=== PATIENT | female | born 1955 | race Caucasian/White ===

== ENCOUNTER 2018-08-09 20:51 | Inpatient (IN) | payer OTHER, MEDICAID ==
[~2018-08-09] VITALS: Ht 152.4 cm; Wt 59.4 kg
[2018-08-09] MEDS ORDERED: DEXTROSE 50% SYRINGE 50 ML IV ONE (21:35)
[2018-08-09] MEDS ORDERED: DEXTROSE (50%) 50ML SYRG IV ONE ×2 (21:45→23:15)
[2018-08-09] MEDS ORDERED: D5W/SOD CHL 0.45% 1,000 ML IV ONE (21:45)
[2018-08-09 21:53] LABS: Basophils # (auto) 0 uL; Basophils % (auto) 0.1 % (0.0-2.0); Eosinophils # (auto) 0 uL; Eosinophils % (auto) 0.1 % (0.0-7.0); Hematocrit 36.5 % (36.0-46.0); Hemoglobin 12.3 g/dL (12.2-16.2); Lymphocytes # (auto) 0.5 uL; Lymphocytes % (auto) 5.9 % (10.0-50.0); Mean Corpuscular Hemoglobin 27.8 pg (28.0-32.0); Mean Corpuscular Hgb Conc. 33.8 g/dL (32.0-36.0); Mean Corpuscular Volume 82.4 fL (80.0-100.0); Monocytes # (auto) 0.6 uL; Monocytes % (auto) 7.2 % (0.0-12.0); Neutrophils # (auto) 7.1 uL; Neutrophils % (auto) 86.7 % (37.0-80.0); Platelet Count (auto) 202 10^3/uL (140-450); Red Blood Cells 4.43 10^6/uL (4.0-5.20); Red Cell Distribution Width 15.6 % (11.8-14.3); White Blood Cell 8.2 10^3/uL (4.4-10.8)
[2018-08-09 22:10] LABS: Albumin 3.3 g/dL (3.4-5.0); Calcium 8.4 mg/dL (8.5-10.1); Potassium 3.2 mmol/L (3.5-5.1)
[2018-08-09 22:12] LABS: BUN/Creatinine Ratio 18.7; Bilirubin, Total 0.7 mg/dL (0.2-1.0); Total Protein 6.7 g/dL (6.4-8.2)
[2018-08-09] MEDS ORDERED: ONDANSETRON HCL 4 MG/2 ML VIAL IV PRN (22:45)
[2018-08-09] MEDS ORDERED: TEMAZEPAM 15 MG CAP PO PRN (22:45)
[2018-08-09] MEDS ORDERED: ACETAMINOPHEN 325 MG TAB PO PRN (22:45)
[2018-08-09] MEDS ORDERED: DEXTROSE 10% 1,000 ML IV SCH ×2 (22:45→23:30)
[2018-08-09] MEDS ORDERED: NITROGLYCERIN 0.4 MG SL TAB SL PRN (22:45)
[2018-08-09] MEDS ORDERED: MORPHINE SULFATE 4 MG/ML SYR/VIAL IV PRN (22:45)
[2018-08-09] MEDS ORDERED: DEXTROSE (50%) 50ML SYRG IV PRN (22:45)
[2018-08-09] MEDS ORDERED: DEXTROSE 10% 1,000 ML IV ONE (23:28)
[2018-08-09 23:52] VITALS: BP 128/69
[2018-08-10] VITALS (7 sets, daily range): BP systolic 90–128; BP diastolic 51–69
[2018-08-10] MEDS ORDERED: ACCU-CHEK COMFORT CURVE STRIP VI SCH
[2018-08-10] MEDS: ACCU-CHEK COMFORT CURVE STRIP VI SCH ×12 (00:28→21:08)
--- NOTE | 2018-08-10 00:30 | NUR ---
Telemetry admit from [facility] KNUTSON admitted to Telemetry unit after SBAR received. Patient oriented to Araceli Roth RN primary RN, unit, room, bed, and unit policies regarding patient care and visiting hours. Patient now on continuous telemetry monitoring, tele box # 24 and telemetry reading on arrival to unit is SR. Patient weighed by bedscale and encouraged to call if they need something. All questions and concerns addressed, patient verbalized understanding, will continue to monitor Note: []
[2018-08-10] MEDS ORDERED: POTA20TA53 PO (01:33)
[2018-08-10] MEDS ORDERED: SIMV10TA84 PO (01:33)
[2018-08-10] MEDS ORDERED: MET50T PO (01:33)
[2018-08-10] MEDS ORDERED: METF-370 PO (01:33)
[2018-08-10] MEDS ORDERED: AMLO5TAB13 PO (01:33)
[2018-08-10] MEDS ORDERED: GLIP-115 PO (01:33)
[2018-08-10] MEDS: InsuLIN REG 1unit/0.01ml Soln (100units/ml) SC SCH ×6 (04:00→21:08)
--- NOTE | 2018-08-10 05:20 | NUR ---
Spoke to hospitalist Terrell, updated on patient's status, received and read back new orders, will carry out order
[2018-08-10] MEDS ORDERED: DEXTROSE (50%) 50ML SYRG IV PRN (06:00)
[2018-08-10] MEDS: DEXTROSE 10% 1,000 ML IV SCH ×2 (06:15→18:27)
[2018-08-10 07:04] LABS: Potassium 3.6 mmol/L (3.5-5.1)
[2018-08-10 07:17] LABS: Albumin 2.9 g/dL (3.4-5.0); BUN/Creatinine Ratio 26.7; Bilirubin, Total 0.4 mg/dL (0.2-1.0); Total Protein 5.9 g/dL (6.4-8.2)
--- NOTE | 2018-08-10 07:30 | NUR ---
OPENING NOTE ASSUMED CARE OF PT. PT SITTING ON BED, HOB SEMI-FOWLERS. PT A&O X4. ON ROOM AIR, O2 SATURATION 96%. NO SIGNS OF SOB/DISTRESS NOTED. PT ON TELE #24, HR 110. SAFETY PRECAUTIONS IN PLACE INCLUDING, BED SET TO LOWEST POSITION/LOCKED. BEDSIDE RAILS UP X2. CALL LIGHT WITHIN REACH. INSTRUCTED PT TO CALL FOR ASSISTANCE. DISCUSSED POC WITH PT. PT VERBALIZED UNDERSTANDING. WILL CONTINUE TO MONITOR Q 1HR AND PRN.
[2018-08-10] MEDS: METOPROLOL TARTRATE 50 MG TAB PO SCH ×2 (10:10→21:00)
[2018-08-10] MEDS: PANTOPRAZOLE 40 MG TAB PO SCH (10:11)
[2018-08-10] MEDS: amLODIPine BESYLATE 5 MG TAB PO SCH (10:11)
--- NOTE | 2018-08-10 10:17 | NUR ---
BLOOD GLUCOSE 116
--- NOTE | 2018-08-10 12:16 | NUR ---
BLOOD GLUCOSE 123
[2018-08-10 13:29] LABS: Urine Bacteria NONE SEEN /hpf (None Seen); Urine Blood Negative /uL (Negative); Urine Specific Gravity 1.006 (1.001-1.035); Urine WBC 1 /hpf (0 - 5)
--- NOTE | 2018-08-10 19:25 | NUR ---
ENDORSED CARE TO REA Jacobo RN.
--- NOTE | 2018-08-10 20:30 | NUR ---
Opening Shift Note: A&Ox4, resting in bed. Room air, pain level 0/10, and at baseline ambulates independently without assistive devices; currently independent to BSC. Bed locked in lowest position, side rails up x2, and call light within reach. Skin intact: generalized bruising present. IV left hand 18 g running 10% dextrose at 80 ml/hr inserted on 08/09/18 and IV 20 g in right forearm running NS at 125 ml/hr inserted on 08/10/18. POC discussed and questions answered. Will continue to round prn.
[2018-08-10] MEDS: SODIUM CHLORIDE 0.9% 1,000 ML IV SCH (21:07)
[2018-08-10] MEDS ORDERED: ATORVASTATIN 20 MG TAB PO SCH (22:00)
--- NOTE | 2018-08-10 22:00 | NUR ---
Held 2200 metoprolol 50 mg for low blood pressure of 103/58.
[2018-08-11] MEDS: ACCU-CHEK COMFORT CURVE STRIP VI SCH ×4 (00:47→12:04)
[2018-08-11] MEDS: InsuLIN REG 1unit/0.01ml Soln (100units/ml) SC SCH ×4 (04:30→12:05)
--- NOTE | 2018-08-11 04:30 | NUR ---
IV removal: 18 g in left hand infiltration. IV removed and heat pack applied. NS and dextrose restarted in IV 20 g in right forearm.
[2018-08-11 05:00] VITALS: BP 90/53
[2018-08-11] MEDS: SODIUM CHLORIDE 0.9% 1,000 ML IV SCH ×2 (05:22→11:45)
[2018-08-11 06:32] LABS: Basophils # (auto) 0 uL; Basophils % (auto) 0.3 % (0.0-2.0); Eosinophils # (auto) 0 uL; Hematocrit 30.3 % (36.0-46.0); Hemoglobin 9.7 g/dL (12.2-16.2); Lymphocytes # (auto) 0.6 uL; Lymphocytes % (auto) 22.6 % (10.0-50.0); Mean Corpuscular Hemoglobin 27.5 pg (28.0-32.0); Mean Corpuscular Hgb Conc. 31.9 g/dL (32.0-36.0); Monocytes # (auto) 0.3 uL; Neutrophils # (auto) 1.8 uL; Neutrophils % (auto) 67.1 % (37.0-80.0); Nucleated Red Blood Cells % 0.1 %; Platelet Count (auto) 129 10^3/uL (140-450); Red Blood Cells 3.52 10^6/uL (4.0-5.20); Red Cell Distribution Width 16.2 % (11.8-14.3); White Blood Cell 2.7 10^3/uL (4.4-10.8)
--- NOTE | 2018-08-11 07:15 | NUR ---
OPENING NOTE ASSUMED CARE OF PT. PT SITTING ON BED, HOB SEMI-FOWLERS. PT A&O X4. ON ROOM AIR, O2 SATURATION 95%. NO SIGNS OF SOB/DISTRESS NOTED. PT ON TELE #24, HR 84. SAFETY PRECAUTIONS IN PLACE INCLUDING, BED SET TO LOWEST POSITION/LOCKED. BEDSIDE RAILS UP X2. CALL LIGHT WITHIN REACH. INSTRUCTED PT TO CALL FOR ASSISTANCE. DISCUSSED POC WITH PT. PT VERBALIZED UNDERSTANDING. WILL CONTINUE TO MONITOR Q 1HR AND PRN.
[2018-08-11] MEDS: DEXTROSE 10% 1,000 ML IV SCH (08:14)
[2018-08-11 08:57] VITALS: BP 99/63
[2018-08-11] MEDS: amLODIPine BESYLATE 5 MG TAB PO SCH (10:00)
[2018-08-11] MEDS: METOPROLOL TARTRATE 50 MG TAB PO SCH (10:00)
[2018-08-11] MEDS: PANTOPRAZOLE 40 MG TAB PO SCH (10:04)
[2018-08-11 10:23] LABS: Albumin 2.6 g/dL (3.4-5.0); Potassium 3.8 mmol/L (3.5-5.1)
[2018-08-11 10:27] LABS: BUN/Creatinine Ratio 18.1; Bilirubin, Total 0.2 mg/dL (0.2-1.0); Total Protein 5.7 g/dL (6.4-8.2)
--- NOTE | 2018-08-11 12:50 | NUR ---
Discharge instructions given as ordered. Encourage to follow up with Dr. Abdalla. [id number] [place] [address]. . All questions and concerns addressed. Patient verbalized understanding. No home medications held in Pharmacy and no vaccines given. IV removed with catheter intact, pressure dressing applied. Telemetry unit #24 returned to ICU.
--- NOTE | 2018-08-11 12:57 | NUR ---
Patient taken to vehicle via wheelchair with all personal belongings, accompanied by staff and family member. No distress noted at time of departure.
[2018-08-11 13:02] VITALS: BP 104/64
== END 2018-08-11 14:11 | disposition home or self-care (01) | DRG 637 ==
LOC: EDBD 20:51 → ER 20:54 → TELE 23:20 → TELE-WESTW 23:30
PROVIDERS: ADMIT Nurse Practitioner; ATTEND Family Medicine
DX: E11.649 Type 2 diabetes mellitus with hypoglycemia without coma (principal); G93.41 Metabolic encephalopathy; E66.9 Obesity, unspecified; Z68.25 Body mass index [BMI] 25.0-25.9, adult; E78.00 Pure hypercholesterolemia, unspecified; E86.0 Dehydration; I10 Essential (primary) hypertension; N18.3 Chronic kidney disease, stage 3 (moderate); I12.9 Hypertensive chronic kidney disease with stage 1 through stage 4 chronic kidney disease, or unspecified chronic kidney disease; Z79.84 Long term (current) use of oral hypoglycemic drugs
CPT/HCPCS: 36415; 71045; 80053; 81001; 82962; 85025; 87040; 87086; 93005; 94761; 96365; 96375; G0378; J1815

== ENCOUNTER 2023-08-12 09:58 | Inpatient (IN) | payer OTHER, MEDICAID ==
[~2023-08-12] VITALS: Ht 152.4 cm; Wt 39.5 kg
[~2023-08-12 09:58] MED LIST: AMLO1TAB22 PO; GLIP5TAB12 PO; MET50T PO; METF-370 PO; POTA-220 PO; SIMV10TA20 PO
[2023-08-12] MEDS ORDERED: ACETAMINOPHEN 325 MG TAB PO ONE (10:30)
[2023-08-12] MEDS ORDERED: SODIUM CHLORIDE 0.9% 500 ML IV ONE (10:30)
[2023-08-12 11:23] LABS: Basophils # (auto) 0 10 ^3/uL (0-0.2); Basophils % (auto) 0.2 % (0.0-2.0); Eosinophils # (auto) 0 10 ^3/uL (0-0.8); Hematocrit 41.4 % (36.0-46.0); Hemoglobin 13.5 g/dL (12.2-16.2); Lymphocytes # (auto) 0.8 10 ^3/uL (0.4-5.4); Lymphocytes % (auto) 4.5 % (10.0-50.0); Mean Corpuscular Hgb Conc. 32.6 g/dL (32.0-36.0); Mean Corpuscular Volume 85.7 fL (80.0-100.0); Monocytes % (auto) 5.6 % (0.0-12.0); Neutrophils % (auto) 89.7 % (37.0-80.0); Red Blood Cells 4.83 10^6/uL (4.0-5.20); Red Cell Distribution Width 16.1 % (11.8-14.3); White Blood Cell 17.8 10^3/uL (4.4-10.8)
[2023-08-12 11:44] LABS: Alanine Aminotransferase 17 U/L (7-40); Albumin 3.9 g/dL (3.2-4.8); Alkaline Phosphatase 87 U/L (46-116); Anion Gap 13 (5-15); Aspartate Aminotransferase 14 U/L (13-40); Bilirubin, Total 0.9 mg/dL (0.2-1.0); Blood Urea Nitrogen 53 mg/dL (9-23); Calcium 9.7 mg/dL (8.7-10.4); Carbon Dioxide 23 mmol/L (20-30); Chloride 100 mmol/L (98-107); Glucose 212 mg/dL (74-106); Potassium 3.5 mmol/L (3.5-5.1); Sodium 136 mmol/L (136-145); Total Protein 6.6 g/dL (5.7-8.2)
[2023-08-12 12:06] LABS: INR 0.93 (0.9-1.15); Partial Thromboplastin Time 29.3 SEC (24.5-34.5)
[2023-08-12] MEDS ORDERED: cefTRIAXone 1GM/50ML D5W 50 ML IV ONE (13:45)
[2023-08-12] MEDS ORDERED: AZITHROMYCIN 500MG/ 250ML 250 ML IV ONE (13:45)
[2023-08-12] MEDS ORDERED: DEXTROSE (50%) 50ML SYRG IV PRN (14:00)
[2023-08-12] MEDS ORDERED: ACETAMINOPHEN 325 MG TAB PO PRN (14:00)
[2023-08-12] MEDS ORDERED: MORPHINE SULFATE INJ 2 MG/ml SYRG IV PRN ×2 (14:00)
[2023-08-12] MEDS ORDERED: NITROGLYCERIN 0.4 MG SL TAB SL PRN (14:00)
[2023-08-12] MEDS ORDERED: HYDROcodone-ACET 5/325MG TAB PO PRN (14:00)
[2023-08-12 14:34] LABS: Free T4 (Free Thyroxine) 1.49 ng/dL (0.89-1.76)
[2023-08-12] MEDS ORDERED: ERGOCALCIFEROL 50,000 UNIT(1.25MG) CAP PO SCH (15:00)
[2023-08-12 18:20] LABS: Urine Bacteria FEW /hpf (None Seen); Urine Blood Negative /uL (Negative); Urine Clarity Clear (Clear); Urine Color Yellow (Yellow); Urine Protein, UAD TRACE (Negative); Urine Specific Gravity 1.015 (1.001-1.035); Urine Urobilinogen Normal (Negative); Urine WBC 2 /hpf (0 - 5)
[2023-08-12] MEDS: ACCU-CHEK COMFORT CURVE STRIP VI SCH ×2 (18:24→22:00)
[2023-08-12] MEDS: InsuLIN REG 1unit/0.01ml Soln (100units/ml) SC SCH ×2 (18:24→22:00)
[2023-08-12] MEDS: ATORVASTATIN 20 MG TAB PO SCH (22:50)
[2023-08-12] MEDS: METOPROLOL TARTRATE 50 MG TAB PO SCH (22:50)
[2023-08-12 23:54] VITALS: BP_SYST 132; BP_SYST 134; BP_DIAS 68; BP_DIAS 73; PULSE 77; PULSE 97; RESP 17; RESP 18; TEMP 36.6; O2SAT 97
[2023-08-13] VITALS (8 sets, daily range): BP systolic 107–117; BP diastolic 56–69; PULSE 73–85; RESP 17–20; TEMP 97–98.3; O2SAT 90–97
[2023-08-13] MEDS: InsuLIN REG 1unit/0.01ml Soln (100units/ml) SC SCH ×4 (06:49→21:58)
[2023-08-13] MEDS: ACCU-CHEK COMFORT CURVE STRIP VI SCH ×4 (06:50→22:13)
[2023-08-13 06:51] LABS: Basophils # (auto) 0 10 ^3/uL (0-0.2); Basophils % (auto) 0.2 % (0.0-2.0); Eosinophils # (auto) 0 10 ^3/uL (0-0.8); Hematocrit 39.5 % (36.0-46.0); Hemoglobin 12.9 g/dL (12.2-16.2); Lymphocytes # (auto) 0.8 10 ^3/uL (0.4-5.4); Lymphocytes % (auto) 6.1 % (10.0-50.0); Mean Corpuscular Hemoglobin 28.3 pg (28.0-32.0); Mean Corpuscular Hgb Conc. 32.7 g/dL (32.0-36.0); Mean Corpuscular Volume 86.5 fL (80.0-100.0); Monocytes # (auto) 0.9 10 ^3/uL (0-1.3); Monocytes % (auto) 6.9 % (0.0-12.0); Neutrophils # (auto) 11.1 10 ^3/uL (1.6-8.6); Neutrophils % (auto) 86.8 % (37.0-80.0); Red Blood Cells 4.57 10^6/uL (4.0-5.20); Red Cell Distribution Width 16.1 % (11.8-14.3); White Blood Cell 12.8 10^3/uL (4.4-10.8)
[2023-08-13 07:10] LABS: Alanine Aminotransferase 20 U/L (7-40); Albumin 3.7 g/dL (3.2-4.8); Alkaline Phosphatase 104 U/L (46-116); Anion Gap 13 (5-15); Aspartate Aminotransferase 26 U/L (13-40); BUN/Creatinine Ratio 29.6 (10.0-20.0); Blood Urea Nitrogen 21 mg/dL (9-23); Calcium 9.6 mg/dL (8.5-10.1); Carbon Dioxide 22 mmol/L (20-30); Chloride 102 mmol/L (98-107); Glucose 133 mg/dL (74-106); Potassium 2.6 mmol/L (3.5-5.1); Sodium 137 mmol/L (136-145)
[2023-08-13 07:11] LABS: Bilirubin, Total 1.1 mg/dL (0.2-1.0); Total Protein 6.3 g/dL (5.7-8.2)
[2023-08-13] MEDS ORDERED: POTASSIUM CHL 20MEQ/100ML 100 ML IV SCH (08:15)
[2023-08-13] MEDS ORDERED: POTASSIUM EFFERVESENT TAB 25 MEQ PO ONE ×3 (08:30→15:15)
[2023-08-13] MEDS: cefTRIAXone 1GM/50ML D5W 50 ML IV SCH (09:10)
[2023-08-13] MEDS: METOPROLOL TARTRATE 50 MG TAB PO SCH ×2 (09:11→22:09)
[2023-08-13] MEDS: amLODIPine BESYLATE 5 MG TAB PO SCH (09:12)
[2023-08-13] MEDS ORDERED: TIMO0.5S66 EACHEYE (09:45)
[2023-08-13] MEDS ORDERED: ENOXAPARIN SOD 40 MG/0.4 ML SYRINGE SC SCH (10:00)
[2023-08-13] MEDS: ATORVASTATIN 20 MG TAB PO SCH (22:09)
[2023-08-14] VITALS (7 sets, daily range): BP systolic 94–119; BP diastolic 56–74; PULSE 67–96; RESP 14–20; TEMP 97.2–98; O2SAT 96–99
[2023-08-14] MEDS: InsuLIN REG 1unit/0.01ml Soln (100units/ml) SC SCH ×4 (06:08→21:39)
[2023-08-14] MEDS: ACCU-CHEK COMFORT CURVE STRIP VI SCH ×4 (06:08→21:38)
[2023-08-14 06:28] LABS: Anion Gap 9 (5-15); Carbon Dioxide 26 mmol/L (20-30); Chloride 101 mmol/L (98-107); Potassium 3.5 mmol/L (3.5-5.1); Sodium 136 mmol/L (136-145)
[2023-08-14 06:30] LABS: Calcium 9.2 mg/dL (8.7-10.4)
[2023-08-14 06:34] LABS: BUN/Creatinine Ratio 29.6 (10.0-20.0); Blood Urea Nitrogen 21 mg/dL (9-23); Glucose 111 mg/dL (74-106)
[2023-08-14 07:08] LABS: Basophils # (auto) 0 10 ^3/uL (0-0.2); Basophils % (auto) 0.2 % (0.0-2.0); Eosinophils # (auto) 0 10 ^3/uL (0-0.8); Hematocrit 38.5 % (36.0-46.0); Hemoglobin 12.6 g/dL (12.2-16.2); Lymphocytes # (auto) 0.8 10 ^3/uL (0.4-5.4); Mean Corpuscular Hemoglobin 28.1 pg (28.0-32.0); Mean Corpuscular Hgb Conc. 32.7 g/dL (32.0-36.0); Mean Corpuscular Volume 86.1 fL (80.0-100.0); Monocytes # (auto) 0.8 10 ^3/uL (0-1.3); Monocytes % (auto) 7.6 % (0.0-12.0); Neutrophils # (auto) 8.7 10 ^3/uL (1.6-8.6); Neutrophils % (auto) 84.2 % (37.0-80.0); Red Blood Cells 4.48 10^6/uL (4.0-5.20); Red Cell Distribution Width 15.8 % (11.8-14.3); White Blood Cell 10.4 10^3/uL (4.4-10.8)
[2023-08-14] MEDS: ENOXAPARIN SOD 30 MG/0.3 ML SYRINGE SC SCH (09:37)
[2023-08-14] MEDS: cefTRIAXone 1GM/50ML D5W 50 ML IV SCH (09:37)
[2023-08-14] MEDS: TIMOLOL MAL 0.5% OPTH(EYE) SOL 5ML EACHEYE SCH (09:37)
[2023-08-14] MEDS: amLODIPine BESYLATE 5 MG TAB PO SCH (09:39)
[2023-08-14] MEDS: METOPROLOL TARTRATE 50 MG TAB PO SCH ×2 (09:40→21:39)
[2023-08-14] MEDS ORDERED: SPIRONOLACTONE 25 MG TAB PO SCH (10:00)
[2023-08-14] MEDS: ATORVASTATIN 20 MG TAB PO SCH (21:39)
[2023-08-15] VITALS (7 sets, daily range): BP systolic 97–115; BP diastolic 61–73; PULSE 63–81; RESP 14–18; TEMP 97.8–98.6; O2SAT 95–100
[2023-08-15] MEDS: ACCU-CHEK COMFORT CURVE STRIP VI SCH ×4 (05:58→22:21)
[2023-08-15] MEDS: InsuLIN REG 1unit/0.01ml Soln (100units/ml) SC SCH ×4 (05:59→22:00)
[2023-08-15 06:43] LABS: Basophils # (auto) 0 10 ^3/uL (0-0.2); Basophils % (auto) 0.2 % (0.0-2.0); Eosinophils # (auto) 0 10 ^3/uL (0-0.8); Eosinophils % (auto) 0.2 % (0.0-7.0); Hematocrit 39.5 % (36.0-46.0); Hemoglobin 12.9 g/dL (12.2-16.2); Lymphocytes # (auto) 1.3 10 ^3/uL (0.4-5.4); Lymphocytes % (auto) 12.6 % (10.0-50.0); Mean Corpuscular Hemoglobin 28.3 pg (28.0-32.0); Mean Corpuscular Hgb Conc. 32.6 g/dL (32.0-36.0); Mean Corpuscular Volume 86.6 fL (80.0-100.0); Monocytes # (auto) 0.9 10 ^3/uL (0-1.3); Monocytes % (auto) 8.2 % (0.0-12.0); Neutrophils # (auto) 8.3 10 ^3/uL (1.6-8.6); Neutrophils % (auto) 78.8 % (37.0-80.0); Nucleated Red Blood Cells % 0.3 %; Red Blood Cells 4.57 10^6/uL (4.0-5.20); Red Cell Distribution Width 15.6 % (11.8-14.3); White Blood Cell 10.6 10^3/uL (4.4-10.8)
[2023-08-15 06:58] LABS: Alanine Aminotransferase 41 U/L (7-40); Albumin 3.5 g/dL (3.2-4.8); Alkaline Phosphatase 172 U/L (46-116); Anion Gap 10 (5-15); Aspartate Aminotransferase 22 U/L (13-40); BUN/Creatinine Ratio 32.8 (10.0-20.0); Blood Urea Nitrogen 22 mg/dL (9-23); Calcium 9.4 mg/dL (8.5-10.1); Carbon Dioxide 27 mmol/L (20-30); Chloride 100 mmol/L (98-107); Glucose 79 mg/dL (74-106); Potassium 3.4 mmol/L (3.5-5.1); Sodium 137 mmol/L (136-145)
[2023-08-15 06:59] LABS: Bilirubin, Total 0.6 mg/dL (0.2-1.0); Total Protein 6.2 g/dL (5.7-8.2)
[2023-08-15] MEDS ORDERED: POTASSIUM EFFERVESENT TAB 25 MEQ GT ONE (09:00)
[2023-08-15] MEDS: cefTRIAXone 1GM/50ML D5W 50 ML IV SCH (09:03)
[2023-08-15] MEDS: METOPROLOL TARTRATE 50 MG TAB PO SCH ×2 (09:04→22:27)
[2023-08-15] MEDS: amLODIPine BESYLATE 5 MG TAB PO SCH (09:04)
[2023-08-15] MEDS: ENOXAPARIN SOD 30 MG/0.3 ML SYRINGE SC SCH (09:04)
[2023-08-15] MEDS: TIMOLOL MAL 0.5% OPTH(EYE) SOL 5ML EACHEYE SCH (10:23)
[2023-08-15] MEDS ORDERED: CEPH500C PO (12:32)
[2023-08-15] MEDS ORDERED: ERGO1CAP23 PO (12:32)
[2023-08-15] MEDS: ATORVASTATIN 20 MG TAB PO SCH (22:25)
[2023-08-16 04:54] VITALS: BP 110/72; PULSE 76; RESP 18; TEMP 98.2; O2SAT 99
[2023-08-16] MEDS: ACCU-CHEK COMFORT CURVE STRIP VI SCH ×3 (06:05→22:00)
[2023-08-16] MEDS: InsuLIN REG 1unit/0.01ml Soln (100units/ml) SC SCH ×3 (06:05→21:27)
[2023-08-16 06:26] LABS: Basophils # (auto) 0 10 ^3/uL (0-0.2); Basophils % (auto) 0.3 % (0.0-2.0); Eosinophils # (auto) 0 10 ^3/uL (0-0.8); Eosinophils % (auto) 0.2 % (0.0-7.0); Hematocrit 39.7 % (36.0-46.0); Lymphocytes # (auto) 1.2 10 ^3/uL (0.4-5.4); Lymphocytes % (auto) 11.9 % (10.0-50.0); Mean Corpuscular Hemoglobin 28.3 pg (28.0-32.0); Mean Corpuscular Hgb Conc. 32.8 g/dL (32.0-36.0); Mean Corpuscular Volume 86.2 fL (80.0-100.0); Monocytes # (auto) 0.8 10 ^3/uL (0-1.3); Monocytes % (auto) 8.3 % (0.0-12.0); Neutrophils # (auto) 7.9 10 ^3/uL (1.6-8.6); Neutrophils % (auto) 79.3 % (37.0-80.0); Red Blood Cells 4.61 10^6/uL (4.0-5.20); Red Cell Distribution Width 15.8 % (11.8-14.3)
[2023-08-16 06:35] LABS: Anion Gap 9 (5-15); Carbon Dioxide 28 mmol/L (20-30); Chloride 99 mmol/L (98-107); Potassium 3.7 mmol/L (3.5-5.1); Sodium 136 mmol/L (136-145)
[2023-08-16 06:41] LABS: BUN/Creatinine Ratio 28.1 (10.0-20.0); Blood Urea Nitrogen 18 mg/dL (9-23); Glucose 92 mg/dL (74-106)
[2023-08-16 08:15] VITALS: BP 107/61; PULSE 72; RESP 17; TEMP 98
[2023-08-16] MEDS: cefTRIAXone 1GM/50ML D5W 50 ML IV SCH (08:34)
[2023-08-16] MEDS: ENOXAPARIN SOD 30 MG/0.3 ML SYRINGE SC SCH (08:35)
[2023-08-16] MEDS: amLODIPine BESYLATE 5 MG TAB PO SCH (08:35)
[2023-08-16] MEDS: TIMOLOL MAL 0.5% OPTH(EYE) SOL 5ML EACHEYE SCH (08:35)
[2023-08-16] MEDS: METOPROLOL TARTRATE 50 MG TAB PO SCH ×2 (08:35→21:20)
[2023-08-16 09:00] VITALS: BP 107/61; PULSE 72; RESP 17; TEMP 98; O2SAT 96
[2023-08-16 12:54] VITALS: BP 144/68; PULSE 67; RESP 17; TEMP 98.3; O2SAT 96
[2023-08-16 16:54] VITALS: BP 115/73; PULSE 75; RESP 16; TEMP 97.8; O2SAT 98
[2023-08-16] MEDS ORDERED: Ensure Enlive Strawberry 8oz Bottle PO SCH (18:00)
[2023-08-16] MEDS: ATORVASTATIN 20 MG TAB PO SCH (21:20)
[2023-08-16 22:00] VITALS: BP 114/70; PULSE 74; RESP 19; TEMP 97.9; O2SAT 96
[2023-08-17] VITALS (7 sets, daily range): BP systolic 100–120; BP diastolic 66–77; PULSE 62–75; RESP 16–20; TEMP 97.5–98.7; O2SAT 96–99
[2023-08-17] MEDS: InsuLIN REG 1unit/0.01ml Soln (100units/ml) SC SCH ×4 (06:11→22:27)
[2023-08-17] MEDS: ACCU-CHEK COMFORT CURVE STRIP VI SCH ×5 (06:11→22:29)
[2023-08-17 06:13] LABS: Basophils # (auto) 0 10 ^3/uL (0-0.2); Basophils % (auto) 0.3 % (0.0-2.0); Eosinophils # (auto) 0 10 ^3/uL (0-0.8); Eosinophils % (auto) 0.3 % (0.0-7.0); Hemoglobin 13.2 g/dL (12.2-16.2); Lymphocytes # (auto) 1.3 10 ^3/uL (0.4-5.4); Lymphocytes % (auto) 14.1 % (10.0-50.0); Mean Corpuscular Hemoglobin 27.7 pg (28.0-32.0); Mean Corpuscular Hgb Conc. 32.1 g/dL (32.0-36.0); Mean Corpuscular Volume 86.4 fL (80.0-100.0); Monocytes # (auto) 0.9 10 ^3/uL (0-1.3); Monocytes % (auto) 9.5 % (0.0-12.0); Neutrophils # (auto) 6.9 10 ^3/uL (1.6-8.6); Neutrophils % (auto) 75.8 % (37.0-80.0); Nucleated Red Blood Cells % 0.1 %; Red Blood Cells 4.75 10^6/uL (4.0-5.20); Red Cell Distribution Width 15.7 % (11.8-14.3); White Blood Cell 9.1 10^3/uL (4.4-10.8)
[2023-08-17 06:25] LABS: Anion Gap 11 (5-15); Carbon Dioxide 23 mmol/L (20-30); Chloride 102 mmol/L (98-107); Potassium 3.6 mmol/L (3.5-5.1); Sodium 136 mmol/L (136-145)
[2023-08-17 06:31] LABS: BUN/Creatinine Ratio 25.4 (10.0-20.0); Blood Urea Nitrogen 15 mg/dL (9-23); Glucose 92 mg/dL (74-106)
[2023-08-17 07:23] LABS: Magnesium 1.6 mg/dL (1.6-2.6)
[2023-08-17] MEDS: Glucerna Carbsteady SHAKE Vanilla 8oz PO SCH ×3 (08:44→18:33)
[2023-08-17] MEDS: cefTRIAXone 1GM/50ML D5W 50 ML IV SCH (08:44)
[2023-08-17] MEDS: TIMOLOL MAL 0.5% OPTH(EYE) SOL 5ML EACHEYE SCH (09:13)
[2023-08-17] MEDS: amLODIPine BESYLATE 5 MG TAB PO SCH (09:14)
[2023-08-17] MEDS: ENOXAPARIN SOD 30 MG/0.3 ML SYRINGE SC SCH (09:14)
[2023-08-17] MEDS: METOPROLOL TARTRATE 50 MG TAB PO SCH ×2 (09:15→22:29)
[2023-08-17] MEDS: ATORVASTATIN 20 MG TAB PO SCH (22:29)
[2023-08-18 04:57] VITALS: BP 118/69; PULSE 85; RESP 18; TEMP 98; O2SAT 98
[2023-08-18 09:00] VITALS: BP 101/66; PULSE 77; RESP 16; TEMP 97.8; O2SAT 97
[2023-08-18] MEDS: InsuLIN REG 1unit/0.01ml Soln (100units/ml) SC SCH ×4 (09:13→22:00)
[2023-08-18] MEDS: ACCU-CHEK COMFORT CURVE STRIP VI SCH ×4 (09:13→22:33)
[2023-08-18] MEDS: TIMOLOL MAL 0.5% OPTH(EYE) SOL 5ML EACHEYE SCH (09:15)
[2023-08-18] MEDS: ENOXAPARIN SOD 30 MG/0.3 ML SYRINGE SC SCH (09:15)
[2023-08-18] MEDS: amLODIPine BESYLATE 5 MG TAB PO SCH (09:16)
[2023-08-18] MEDS: Glucerna Carbsteady SHAKE Vanilla 8oz PO SCH ×2 (09:17→12:01)
[2023-08-18] MEDS: METOPROLOL TARTRATE 50 MG TAB PO SCH ×2 (09:17→22:00)
[2023-08-18] MEDS: cefTRIAXone 1GM/50ML D5W 50 ML IV SCH (09:17)
[2023-08-18 13:00] VITALS: BP 104/62; PULSE 96; RESP 15; TEMP 98.1; O2SAT 97
[2023-08-18 17:00] VITALS: BP 105/65; PULSE 70; RESP 17; TEMP 98; O2SAT 97
[2023-08-18 20:00] VITALS: RESP 20
[2023-08-18 22:00] VITALS: BP 102/59; PULSE 73; RESP 16; TEMP 98.2; O2SAT 98
[2023-08-18] MEDS: ATORVASTATIN 20 MG TAB PO SCH (22:33)
[2023-08-19 05:00] VITALS: BP 110/69; PULSE 83; RESP 16; TEMP 98.1; O2SAT 100
[2023-08-19] MEDS: InsuLIN REG 1unit/0.01ml Soln (100units/ml) SC SCH (06:23)
[2023-08-19] MEDS: ACCU-CHEK COMFORT CURVE STRIP VI SCH (06:23)
[2023-08-19] MEDS: ENOXAPARIN SOD 30 MG/0.3 ML SYRINGE SC SCH (08:48)
[2023-08-19] MEDS: TIMOLOL MAL 0.5% OPTH(EYE) SOL 5ML EACHEYE SCH (08:49)
[2023-08-19] MEDS: cefTRIAXone 1GM/50ML D5W 50 ML IV SCH (08:49)
[2023-08-19] MEDS: Glucerna Carbsteady SHAKE Vanilla 8oz PO SCH ×2 (08:52→08:53)
[2023-08-19 09:00] VITALS: BP 96/61; PULSE 78; RESP 16; TEMP 98.3; O2SAT 97
[2023-08-19] MEDS: amLODIPine BESYLATE 5 MG TAB PO SCH (10:00)
[2023-08-19] MEDS: METOPROLOL TARTRATE 50 MG TAB PO SCH (10:00)
== END 2023-08-19 09:47 | DRG 641 ==
LOC: EDBD 09:58 → ER 09:58 → OVERFLOW 13:58 → WEST WING 23:24
PROVIDERS: ADMIT Internal Medicine; ATTEND Internal Medicine
DX: E86.0 Dehydration (principal); N39.0 Urinary tract infection, site not specified; J90 Pleural effusion, not elsewhere classified; Z68.1 Body mass index [BMI] 19.9 or less, adult; E11.9 Type 2 diabetes mellitus without complications; I10 Essential (primary) hypertension; G89.11 Acute pain due to trauma; D72.829 Elevated white blood cell count, unspecified; R29.6 Repeated falls; E55.9 Vitamin D deficiency, unspecified; E87.6 Hypokalemia; E78.5 Hyperlipidemia, unspecified; Z82.49 Family history of ischemic heart disease and other diseases of the circulatory system; R62.7 Adult failure to thrive; M24.452 Recurrent dislocation, left hip; S00.91XA Abrasion of unspecified part of head, initial encounter; W01.0XXA Fall on same level from slipping, tripping and stumbling without subsequent striking against object, initial encounter; Y93.89 Activity, other specified; Y92.89 Other specified places as the place of occurrence of the external cause; Y99.8 Other external cause status
CPT/HCPCS: 36415; 70450; 71045; 72125; 73502; 73562; 73590; 80048; 80053; 81001; 82306; 82607; 82962; 83036; 83605; 83735; 83880; 84132; 84439; 84443; 84484; 85025; 85610; 85730; 87040; 87086; 93005; 97110; 97116; 97163; 97530; G0378; J1815